=== PATIENT | male | born 1940 | race Caucasian/White ===

== ENCOUNTER 2018-08-29 20:41 | Inpatient (IN) ==
[2018-08-29] MEDS ORDERED: SODIUM CHLORIDE 0.9% 1,000 ML IV STA (23:17)
[2018-08-30 00:16] LABS: Basophils % 0.3 % (0.0-0.8); Eosinophils # 0.1 10*3/uL (0.0-0.87); Eosinophils % 0.5 % (0.00-10.9); Hematocrit 33.1 VOL% (42.0-52.0); Hemoglobin 11.2 GM/DL (14.0-18.0); Immature Granulocytes % 0.8 %; Immature Granulocytes Absolute 0.09 #; Lymphocytes # 0.8 10*3/uL (1.4-4.0); Lymphocytes % 6.9 % (21.2-54.2); Mean Corpuscular HGB Conc 33.8 GM/DL (32-36); Mean Corpuscular Hemoglobin 31 PG (27-34); Mean Corpuscular Volume 92.5 FL (87-102); Mean Platelet Volume 9.1 FL (9.6-12.0); Monocytes % 9.4 % (1.7-12.7); Neutrophils # 9.1 10*3/uL (1.4-7.4); Neutrophils % 82.1 % (38.7-73.9); Platelet Count 318 T/CUMM (130-400); Red Blood Count 3.58 MC/CUMM (3.8-5.5); White Blood Count 11.1 T/CUMM (4-12)
[2018-08-30 00:21] LABS: Albumin 2.8 G/DL (3.4-5.0); Bilirubin,Total 0.6 MG/DL (0.2-1.0); Calcium 9.1 MG/DL (8.5-10.1); Osmolality,Calculated 278.4 MOS/KG (273-304); Potassium 3.7 MMOL/L (3.5-5.1); Total Protein 7.1 G/DL (6.4-8.3)
[2018-08-30 01:24] LABS: Apearance,Urine Slightly Hazy (Clear); Bacteria,Urine Few /HPF (Few); Bilirubin,Urine Negative (Negative); Blood, Urine Moderate mg/dL (Negative); Glucose,Urine (UA) Negative (Negative); Ketones,Urine Negative (Negative); Mucus,Urine Occasional /LPF (Occasional); Nitrite,Urine Positive (Negative); Protein,Urine 30 MG/DL; RBC,Urine 18 /HPF (0-4); Squamous Epithelial Cell,Urine Occasional /HPF (0-10); Urine Color Yellow (Yellow); Urine Urobilinogen < 2.0 EU/DL (0.2-1.0); WBC,Urine 60 /HPF (0-6)
[2018-08-30 01:42] LABS: VBG Base Excess -5.4 MEQ/L (0-4); VBG Oxygen Saturation 98.7 %; VBG PCO2 35.2 MMHG (41-51); VBG PH 7.352
[2018-08-30] MEDS ORDERED: cefTRIAXone 1,000 MG in SODIUM CHLORIDE 0.9% 100 ML IV STA (02:41)
[2018-08-30] MEDS ORDERED: ONDANSETRON 4 MG/2 ML VIAL IV PRN (02:56)
[2018-08-30 04:18] LABS: Band Neutrophils 3 % (0-10); Lymphocytes 6 % (20-55); Platelet Estimate Normal; Segmented Neutrophils 80 % (50-85); Total Cells Counted 100
[2018-08-30] MEDS: DEXTROSE 5% NACL 0.9% 1,000 ML IV SCH ×2 (05:03→12:31)
[2018-08-30] MEDS ORDERED: DOCUSATE SODIUM 100 MG CAPSULE PO PRN (08:35)
[2018-08-30] MEDS ORDERED: ACETAMINOPHEN 325 MG TABLET PO PRN (08:35)
[2018-08-30 09:31] LABS: Basophils % 0.2 % (0.0-0.8); Eosinophils # 0.1 10*3/uL (0.0-0.87); Eosinophils % 0.4 % (0.00-10.9); Hematocrit 32.9 VOL% (42.0-52.0); Hemoglobin 11.2 GM/DL (14.0-18.0); Immature Granulocytes % 0.8 %; Lymphocytes # 0.7 10*3/uL (1.4-4.0); Lymphocytes % 5.8 % (21.2-54.2); Mean Corpuscular Hemoglobin 31 PG (27-34); Mean Corpuscular Volume 91.6 FL (87-102); Mean Platelet Volume 9.2 FL (9.6-12.0); Monocytes # 0.9 10*3/uL (0.11-0.8); Monocytes % 7.6 % (1.7-12.7); Neutrophils # 10.4 10*3/uL (1.4-7.4); Neutrophils % 85.2 % (38.7-73.9); Platelet Count 325 T/CUMM (130-400); Red Blood Count 3.59 MC/CUMM (3.8-5.5); Red Cell Distribution Width 12.1 % (9.3-17.3); White Blood Count 12.2 T/CUMM (4-12)
[2018-08-30 09:48] LABS: Calcium 8.7 MG/DL (8.5-10.1); Osmolality,Calculated 285.7 MOS/KG (273-304); Potassium 3.4 MMOL/L (3.5-5.1)
[2018-08-30] MEDS: PANTOPRAZOLE 40 MG TABLET PO SCH (10:46)
[2018-08-30] MEDS: amLODIPine 5 MG TABLET PO SCH (10:46)
[2018-08-30] MEDS: CARBIDOPA/LEVODOPA 25-100 MG TABLET PO SCH ×3 (10:46→20:44)
[2018-08-30] MEDS: ASPIRIN EC 81 MG TABLET PO SCH (10:46)
[2018-08-30 10:53] LABS: Hypersegmented Neutrophil SLIGHT; Hypochromasia 1+; Lymphocytes 2 % (20-55); Segmented Neutrophils 97 % (50-85); Total Cells Counted 100
[2018-08-30 10:54] LABS: Microcytosis 1+; Ovalocytes Slight
[2018-08-30] MEDS: DEXTROSE 5% IV SCH ×2 (13:20→20:52)
[2018-08-30] MEDS: SODIUM BICARB IV SCH ×2 (13:20→20:52)
[2018-08-30] MEDS: POTASSIUM CHLORIDE IV SCH ×2 (13:20→20:52)
[2018-08-30] MEDS ORDERED: LIDOCAINE 2% TOP JELLY 20 ML VIAL INTRAURETH ONE (15:14)
[2018-08-30 17:18] LABS: Apearance,Urine CLOUDY (Clear); Bilirubin,Urine Negative (Negative); Blood, Urine Moderate mg/dL (Negative); Glucose,Urine (UA) Negative (Negative); Ketones,Urine Negative (Negative); Mucus,Urine Occasional /LPF (Occasional); Nitrite,Urine Negative (Negative); Protein,Urine Negative; RBC,Urine 4 /HPF (0-4); Urine Color Yellow (Yellow); Urine Specific Gravity 1.008 (1.001-1.035); Urine Urobilinogen < 2.0 EU/DL (0.2-1.0); WBC,Urine 264 /HPF (0-6)
[2018-08-30] MEDS: ATORVASTATIN 20 MG TABLET PO SCH (20:44)
[2018-08-31 05:11] LABS: Basophils % 0.2 % (0.0-0.8); Eosinophils # 0.2 10*3/uL (0.0-0.87); Eosinophils % 1.2 % (0.00-10.9); Hematocrit 30.4 VOL% (42.0-52.0); Hemoglobin 10.2 GM/DL (14.0-18.0); Immature Granulocytes % 0.8 %; Lymphocytes # 0.8 10*3/uL (1.4-4.0); Lymphocytes % 6.8 % (21.2-54.2); Mean Corpuscular HGB Conc 33.6 GM/DL (32-36); Mean Corpuscular Hemoglobin 31 PG (27-34); Mean Corpuscular Volume 91.8 FL (87-102); Monocytes % 8.1 % (1.7-12.7); Neutrophils # 10.1 10*3/uL (1.4-7.4); Neutrophils % 82.9 % (38.7-73.9); Platelet Count 307 T/CUMM (130-400); Red Blood Count 3.31 MC/CUMM (3.8-5.5); Red Cell Distribution Width 12.1 % (9.3-17.3); White Blood Count 12.2 T/CUMM (4-12)
[2018-08-31 05:27] LABS: Calcium 8.1 MG/DL (8.5-10.1); Osmolality,Calculated 284.7 MOS/KG (273-304); Potassium 3.4 MMOL/L (3.5-5.1)
[2018-08-31] MEDS: POTASSIUM CHLORIDE IV SCH ×3 (05:31→22:30)
[2018-08-31] MEDS: SODIUM BICARB IV SCH ×3 (05:31→22:30)
[2018-08-31] MEDS: DEXTROSE 5% IV SCH ×3 (05:31→22:30)
[2018-08-31] MEDS: ASPIRIN EC 81 MG TABLET PO SCH (09:15)
[2018-08-31] MEDS: cefTRIAXone 1,000 MG in SYRINGE 1 EACH IV SCH (09:15)
[2018-08-31] MEDS: CARBIDOPA/LEVODOPA 25-100 MG TABLET PO SCH ×3 (09:15→21:44)
[2018-08-31] MEDS: amLODIPine 5 MG TABLET PO SCH (09:15)
[2018-08-31] MEDS: PANTOPRAZOLE 40 MG TABLET PO SCH (09:15)
[2018-08-31] MEDS: ATORVASTATIN 20 MG TABLET PO SCH (21:45)
[2018-09-01] MEDS: POTASSIUM CHLORIDE IV SCH ×2 (06:16→16:05)
[2018-09-01] MEDS: DEXTROSE 5% IV SCH ×2 (06:16→16:05)
[2018-09-01] MEDS: SODIUM BICARB IV SCH ×2 (06:16→16:05)
[2018-09-01] MEDS: cefTRIAXone 1,000 MG in SYRINGE 1 EACH IV SCH (08:56)
[2018-09-01] MEDS: CARBIDOPA/LEVODOPA 25-100 MG TABLET PO SCH ×3 (08:56→21:15)
[2018-09-01] MEDS: amLODIPine 5 MG TABLET PO SCH (08:56)
[2018-09-01] MEDS: ASPIRIN EC 81 MG TABLET PO SCH (08:57)
[2018-09-01] MEDS: PANTOPRAZOLE 40 MG TABLET PO SCH (08:57)
[2018-09-01] MEDS ORDERED: POTASSIUM CHLORIDE 20 MEQ TABLET PO ONE (14:00)
[2018-09-01] MEDS: LEVOFLOXACIN 500 MG TABLET PO SCH (16:31)
[2018-09-01] MEDS ORDERED: LEVOFLOXACIN 750 MG TABLET PO SCH (17:00)
[2018-09-01] MEDS: ATORVASTATIN 20 MG TABLET PO SCH (21:15)
[2018-09-02] MEDS: amLODIPine 5 MG TABLET PO SCH (10:54)
[2018-09-02] MEDS: CARBIDOPA/LEVODOPA 25-100 MG TABLET PO SCH ×3 (10:54→21:35)
[2018-09-02] MEDS: PANTOPRAZOLE 40 MG TABLET PO SCH (10:55)
[2018-09-02] MEDS: ASPIRIN EC 81 MG TABLET PO SCH (10:55)
[2018-09-02] MEDS: cefTRIAXone 1,000 MG in SYRINGE 1 EACH IV SCH (10:59)
[2018-09-02] MEDS: DEXTROSE 5% 1,000 ML IV SCH (11:06)
[2018-09-02] MEDS: ATORVASTATIN 20 MG TABLET PO SCH (21:35)
[2018-09-03] MEDS: DEXTROSE 5% IV SCH (01:25)
[2018-09-03] MEDS: POTASSIUM CHLORIDE IV SCH (01:25)
[2018-09-03] MEDS: SODIUM BICARB IV SCH (01:25)
[2018-09-03] MEDS: DEXTROSE 5% 1,000 ML IV SCH ×3 (04:45→21:58)
[2018-09-03 05:25] LABS: Basophils % 0.2 % (0.0-0.8); Eosinophils # 0.2 10*3/uL (0.0-0.87); Eosinophils % 1.2 % (0.00-10.9); Hematocrit 32.1 VOL% (42.0-52.0); Hemoglobin 10.7 GM/DL (14.0-18.0); Immature Granulocytes % 1.4 %; Immature Granulocytes Absolute 0.18 #; Lymphocytes % 7.3 % (21.2-54.2); Mean Corpuscular HGB Conc 33.3 GM/DL (32-36); Mean Corpuscular Hemoglobin 31 PG (27-34); Mean Platelet Volume 9.1 FL (9.6-12.0); Monocytes # 0.9 10*3/uL (0.11-0.8); Neutrophils # 10.7 10*3/uL (1.4-7.4); Neutrophils % 82.9 % (38.7-73.9); Platelet Count 402 T/CUMM (130-400); Red Blood Count 3.49 MC/CUMM (3.8-5.5); White Blood Count 12.9 T/CUMM (4-12)
[2018-09-03 05:58] LABS: Calcium 8.6 MG/DL (8.5-10.1); Potassium 3.7 MMOL/L (3.5-5.1)
[2018-09-03 06:02] LABS: Platelet Estimate Normal
[2018-09-03] MEDS: ASPIRIN EC 81 MG TABLET PO SCH (08:47)
[2018-09-03] MEDS: LEVOFLOXACIN 500 MG TABLET PO SCH ×3 (08:47→16:48)
[2018-09-03] MEDS: amLODIPine 5 MG TABLET PO SCH (08:48)
[2018-09-03] MEDS: CARBIDOPA/LEVODOPA 25-100 MG TABLET PO SCH ×3 (08:48→21:54)
[2018-09-03] MEDS: cefTRIAXone 1,000 MG in SYRINGE 1 EACH IV SCH (08:48)
[2018-09-03] MEDS: PANTOPRAZOLE 40 MG TABLET PO SCH (08:54)
[2018-09-03] MEDS: ATORVASTATIN 20 MG TABLET PO SCH (21:54)
[2018-09-04] MEDS: LACTULOSE 20 GM/30 ML UDCUP PO SCH (09:25)
[2018-09-04] MEDS: CARBIDOPA/LEVODOPA 25-100 MG TABLET PO SCH ×3 (09:25→20:54)
[2018-09-04] MEDS: ASPIRIN EC 81 MG TABLET PO SCH (09:25)
[2018-09-04] MEDS: amLODIPine 5 MG TABLET PO SCH (09:25)
[2018-09-04] MEDS: PANTOPRAZOLE 40 MG TABLET PO SCH (09:26)
[2018-09-04] MEDS: POLYETHYLENE GLYCOL POWDER 17 GM PACK PO SCH (09:27)
[2018-09-04] MEDS ORDERED: TUBERCULIN SKIN TEST 0.1 ML SYRINGE INTRADERM ONE (09:46)
[2018-09-04] MEDS: cefTRIAXone 1,000 MG in SYRINGE 1 EACH IV SCH (10:34)
[2018-09-04] MEDS: DEXTROSE 5% 1,000 ML IV SCH (17:41)
[2018-09-04] MEDS: ATORVASTATIN 20 MG TABLET PO SCH (20:54)
[2018-09-05] MEDS: POLYETHYLENE GLYCOL POWDER 17 GM PACK PO SCH (08:40)
[2018-09-05] MEDS: DEXTROSE 5% 1,000 ML IV SCH (08:41)
[2018-09-05] MEDS: PANTOPRAZOLE 40 MG TABLET PO SCH (08:41)
[2018-09-05] MEDS: CARBIDOPA/LEVODOPA 25-100 MG TABLET PO SCH (08:41)
[2018-09-05] MEDS: ASPIRIN EC 81 MG TABLET PO SCH (08:41)
[2018-09-05] MEDS: LACTULOSE 20 GM/30 ML UDCUP PO SCH (08:41)
[2018-09-05] MEDS: amLODIPine 5 MG TABLET PO SCH (08:41)
[2018-09-05 13:07] VITALS: BP 90/55
== END 2018-09-05 14:45 | DRG 683 ==
LOC: N.ED 20:41 → N.EDINP 20:41 → N.5E 08-30 03:42
PROVIDERS: ADMIT Family Medicine; ATTEND Family Medicine

== ENCOUNTER 2020-01-04 10:38 | Inpatient (IN) ==
[2020-01-04] MEDS ORDERED: SODIUM CHLORIDE 0.9% 500 ML IV ONE ×2 (11:32→19:50)
[2020-01-04 11:50] LABS: Basophils % 0.2 % (0.0-0.8); Hematocrit 31.9 VOL% (42.0-52.0); Hemoglobin 10.1 GM/DL (14.0-18.0); Immature Granulocytes % 0.6 %; Immature Granulocytes Absolute 0.12 #; Lymphocytes # 0.7 10*3/uL (1.4-4.0); Lymphocytes % 3.7 % (21.2-54.2); Mean Corpuscular HGB Conc 31.7 GM/DL (32-36); Mean Corpuscular Volume 92.7 FL (87-102); Mean Platelet Volume 11.5 FL (9.6-12.0); Monocytes % 5.8 % (1.7-12.7); Neutrophils % 89.7 % (38.7-73.9); Platelet Count 246 T/CUMM (130-400); Red Blood Count 3.44 MC/CUMM (3.8-5.5); Red Cell Distribution Width 13.3 % (9.3-17.3); White Blood Count 18.5 T/CUMM (4-12)
[2020-01-04 11:54] LABS: Albumin 3.6 G/DL (3.4-5.0); Bilirubin,Total 0.6 MG/DL (0.2-1.0); Calcium 8.6 MG/DL (8.5-10.1); Osmolality,Calculated 300.8 MOS/KG (273-304); Total Protein 6.8 G/DL (6.4-8.3)
[2020-01-04] MEDS ORDERED: ONDANSETRON 4 MG/2 ML VIAL IV PRN (14:22)
[2020-01-04] MEDS ORDERED: ACETAMINOPHEN 325 MG TABLET PO PRN (14:22)
[2020-01-04] MEDS ORDERED: cefTRIAXone 1,000 MG in SODIUM CHLORIDE 0.9% 100 ML IV STA (14:32)
[2020-01-04] MEDS ORDERED: SODIUM POLYSTYRENE SULFATE 15 GM/60 ML BOTTLE PO SCH ×2 (15:00)
[2020-01-04 15:02] LABS: Apearance,Urine CLOUDY (Clear); Bilirubin,Urine Negative (Negative); Blood, Urine Moderate mg/dL (Negative); Glucose,Urine (UA) Negative (Negative); Ketones,Urine Negative (Negative); Nitrite,Urine Negative (Negative); Protein,Urine 100 MG/DL; RBC,Urine 114 /HPF (0-4); Urine Color Amber (Yellow); Urine Specific Gravity 1.012 (1.001-1.035); Urine Urobilinogen < 2.0 EU/DL (0.2-1.0); WBC,Urine 1219 /HPF (0-6)
[2020-01-04] MEDS ORDERED: traMADol 50 MG TABLET PO SCH (17:00)
[2020-01-04] MEDS: SODIUM CHLORIDE 0.9% 1,000 ML IV SCH (17:30)
[2020-01-04 20:53] LABS: Basophils # 0.1 10*3/uL (0.0-0.2); Basophils % 0.2 % (0.0-0.8); Eosinophils # 0.3 10*3/uL (0.0-0.87); Hematocrit 29.5 VOL% (42.0-52.0); Immature Granulocytes % 2.1 %; Immature Granulocytes Absolute 0.52 #; Lymphocytes # 2.1 10*3/uL (1.4-4.0); Lymphocytes % 8.5 % (21.2-54.2); Mean Corpuscular HGB Conc 28.5 GM/DL (32-36); Mean Corpuscular Volume 105.7 FL (87-102); Mean Platelet Volume 11.7 FL (9.6-12.0); Monocytes % 7.9 % (1.7-12.7); NRBC # 0.04 10*3/uL; Neutrophils % 80.3 % (38.7-73.9); Platelet Count 245 T/CUMM (130-400); Red Blood Count 2.79 MC/CUMM (3.8-5.5); Red Cell Distribution Width 13.3 % (9.3-17.3); White Blood Count 24.2 T/CUMM (4-12)
[2020-01-04 20:54] LABS: Hemoglobin 8.4 GM/DL (14.0-18.0)
[2020-01-04] MEDS ORDERED: DOCUSATE SODIUM 100 MG CAPSULE PO SCH (21:00)
[2020-01-04 21:28] LABS: Band Neutrophils 13 % (0-10); Eosinophils 4 % (0-10); Lymphocytes 8 % (20-55); Metamyelocytes 1 %; Segmented Neutrophils 70 % (50-85); Total Cells Counted 100
[2020-01-04 21:29] LABS: Platelet Estimate Normal
[2020-01-04 21:30] LABS: Macrocytosis 1+; Ovalocytes Slight
[2020-01-04 21:31] LABS: Burr Cells Few
[2020-01-04] MEDS ORDERED: SODIUM CHLORIDE 0.9% 1,000 ML IV PRN (21:34)
[2020-01-04] MEDS ORDERED: MELATONIN 3 MG TABLET PO SCH (21:45)
[2020-01-04] MEDS ORDERED: CARBIDOPA/LEVODOPA 25-100 MG TABLET PO SCH (22:00)
[2020-01-04] MEDS ORDERED: MEMANTINE 10 MG TABLET PO SCH (22:00)
[2020-01-04 22:05] LABS: Calcium 9.4 MG/DL (8.5-10.1); Osmolality,Calculated 304.4 MOS/KG (273-304)
[2020-01-05 02:43] VITALS: BP 45/21
[2020-01-05] MEDS: SODIUM CHLORIDE 0.9% 1,000 ML IV SCH (04:49)
[2020-01-05] MEDS ORDERED: ASPIRIN EC 81 MG TABLET PO SCH (09:00)
[2020-01-05] MEDS ORDERED: PANTOPRAZOLE 40 MG TABLET PO SCH (09:00)
[2020-01-05] MEDS ORDERED: LACTULOSE 20 GM/30 ML UDCUP PO SCH (09:00)
[2020-01-05] MEDS ORDERED: MIRTAZAPINE 15 MG TABLET PO SCH (21:00)
[2020-01-06] MEDS ORDERED: POLYETHYLENE GLYCOL POWDER 17 GM PACK PO SCH (09:00)
== END 2020-01-05 02:15 | disposition expired | DRG 536 ==
LOC: EDBD → EDUNIT# → N.ED 10:38 → N.EDINP 14:22 → N.3E 15:32
PROVIDERS: ADMIT Family Medicine; ATTEND Family Medicine